=== PATIENT | male | born 1960 | race Caucasian/White ===

== ENCOUNTER 2022-03-15 08:17 | Emergency (ER) | payer OTHER, SELFPAY ==
[2022-03-15 08:30] VITALS: BP 116/78; PULSE 100; RESP 16; TEMP 37.6; O2SAT 95
--- NOTE | 2022-03-15 08:30 | ED.URI ---
HPI - URI/Sore Throat General Chief Complaint: Upper Respiratory Infection Stated Complaint: cough/sob Time Seen by Provider: 03/15/22 08:30 Source: patient Mode of arrival: ambulatory Limitations: no limitations History of Present Illness HPI Narrative: 61-year-old male presents with complaint of severe cough and chest congestion for 3 to 4 days. Reports body aches, chills, fatigue. No shortness of breath. Did a home COVID test that was negative. Reports that he got little sleep last night due to coughing. Taking [id number] Tylenol Cold and flu and not helping. Afebrile. Patient reports that he has not been this sick for several years, is concerned he has pneumonia. States that last night he was wheezing. All systems reviewed and negative except as noted above. Related Data Home Medications Medication Instructions Recorded Confirmed risankizumab-rzaa 75 mg/0.83 mL 150 mg subcut ONCE 03/15/22 03/15/22 subcutaneous syringe (Skyrizi) Allergies Allergy/AdvReac Type Severity Reaction Status Date / Time No Known Allergies Allergy Verified 03/15/22 08:29 Review of Systems Review of Systems: CONSTITUTIONAL: Denies fever. Reports chills and sweats. EYES: Denies visual changes, redness, or discharge. ENT: Denies rhinorrhea, congestion, sore throat, or otalgia. CARDIOVASCULAR: Denies chest pain, palpitations, or edema. RESPIRATORY: Reports cough and chest congestion Denies dyspnea. GASTROINTESTINAL: Denies abdominal pain, nausea, vomiting, or diarrhea. GENITOURINARY: Denies dysuria or hematuria. SKIN: Denies rash or itching. MUSCULOSKELETAL: Denies back pain, joint pain. Reports myalgia. NEUROLOGIC: Denies headache, numbness, or weakness. PSYCHIATRIC: Denies anxiety or depression. All other systems reviewed are negative, except as documented in HPI. PMFSH Comments At time of signature, agree with nursing past medical, surgical, social and family history. There is no relevant family history pertinent to the presenting complaint. Exam Narrative: GENERAL: This is a well-nourished, well-developed patient, in no apparent distress. HEAD: normocephalic, atraumatic. EYES: PERRL. Sclera clear/white. Vision is grossly intact. EARS: External ears normal, auditory canals clear and without drainage, TMs normal without perforation. Hearing grossly intact. NOSE: External nose normal with no obvious nasal discharge, nares without redness, no rhinorrhea. THROAT: Mucous membranes moist, posterior pharynx clear. NECK: Neck supple, non-tender without lymphadenopathy, masses or thyromegaly. CARDIOVASCULAR: Regular rate and rhythm without murmurs, gallops, or rubs. RESPIRATORY: Mildly decreased lung sounds to bilateral bases, otherwise clear to auscultation. Breath sounds equal bilaterally. No wheezes, rales, or rhonchi. SKIN: warm, Dry, intact with no suspicious lesions or rash, good texture and turgor. NEURO: awake, alert, and oriented to person, place and time. There were no obvious focal neurologic abnormalities. EXTREMITIES: Normal range of motion to all extremities. Course Course Level of Care: Express Care Visit Vital Signs Vital signs: Vital Signs Temperature 37.6 C 03/15/22 08:30 Pulse Rate 100 03/15/22 08:30 Respiratory Rate 16 03/15/22 08:30 Blood Pressure 116/78 03/15/22 08:30 Pulse Oximetry 95 03/15/22 08:30 Oxygen Delivery Room Air 03/15/22 08:30 Temperature 37.6 C 03/15/22 08:34 Pulse Rate 100 03/15/22 08:34 Respiratory Rate 16 03/15/22 08:34 Blood Pressure 116/78 03/15/22 08:34 Pulse Oximetry 95 03/15/22 08:34 Oxygen Delivery Room Air 03/15/22 08:34 Reviewed MDM - URI/Sore Throat MDM Narrative Medical decision making narrative: Patient is aware of diagnosis, understands and agrees to treatment plan. Anticipatory guidance given. Patient agrees to follow-up as directed and is aware of reasons to seek care at the emergency department. Portions of thi
[2022-03-15 08:34] VITALS: BP 116/78; PULSE 100; RESP 16; TEMP 37.6; O2SAT 95
== END 2022-03-15 08:49 | disposition home or self-care (01) ==
PROVIDERS: Emergency Provider Nurse Practitioner Family
DX: J06.9 Acute upper respiratory infection, unspecified (principal); L40.50 Arthropathic psoriasis, unspecified
CPT/HCPCS: 99213; G0463

== ENCOUNTER 2023-09-14 16:21 | Emergency (ER) | payer OTHER, SELFPAY ==
--- NOTE | 2023-09-14 16:29 | ED.URI ---
HPI - URI/Sore Throat General Chief Complaint: Upper Respiratory Infection Stated Complaint: sinus issue wheezing Time Seen by Provider: 09/14/23 16:25 Source: patient Mode of arrival: ambulatory Limitations: no limitations History of Present Illness HPI Narrative: Jerardo is a 63-year-old male patient presenting to clinic today with complaints of wheezing and sinus congestion x1 month. He reports no fever or chills. States he is wheezing more at nighttime. Cough is nonproductive. Reports shortness of breath times MD elicited complaint: sore throat and nasal congestion Related Data Allergies Allergy/AdvReac Type Severity Reaction Status Date / Time No Known Allergies Allergy Verified 09/14/23 16:23 Review of Systems Review of Systems: Pertinent positives per HPI. Patient denies any fever, chills, rash, headache, visual changes, dizziness, chest pain, palpitations, nausea, vomiting, diarrhea, constipation, abdominal pain, or any urinary issues. PMFSH Comments At the time of my signature, I reviewed and agree with the nursing past medical, surgical, social, and family history. There is no relevant family history pertinent to the patient complaint. Exam Narrative: General: Well-developed, well nourished, in no apparent distress Head: Normocephalic, atraumatic Eyes: Pupils equally round and reactive to light bilaterally, EOM intact, sclera and conjunctive clear, no discharge, lids normal Ears: TMs intact and clear, ear canals clear, no drainage, grossly hearing normal. Nose: Nares patent, yellow nasal discharge, moderate inflammation, frontal sinus tenderness. Mouth: Oral pharynx without lesions or masses, good dentition, MMM. PND Neck: Supple, trachea midline, no enlargement of anterior or posterior cervical nodes, no thyroid masses or goiter palpable. Cardio: Regular rate and rhythm, s1 and s2 normal, no murmur appreciated. Resp: Clear to auscultation bilaterally, no rhonchi, rales, wheezing or rubs Course Course Emergency Course: Portions of this record may have been created with voice recognition software. Level of Care: Express Care Visit Vital Signs Vital signs: Vital signs reviewed MDM - URI/Sore Throat MDM Narrative Medical decision making narrative: At the time of visit patient is resting comfortably on the exam table. I suspect the patient has sinobronchitis. Rx for Augmention, albuterol inhaler, and prednisone was sent to the pharmacy. Supportive measures were discussed with the patient he voiced understanding discharge instructions and agrees to treatment plan. Differential Diagnosis Differential diagnosis: Likely upper respiratory infection, otitis media, sinusitis, viral infection, bronchitis, influenza, pharyngitis and other (COVID) Discharge Plan Discharge Clinical Impression: Sinobronchitis Patient Disposition: Home, Self-Care Condition: Stable Instructions: Antibiotic Form, Sinusitis (ED), Acute Bronchitis (ED) Additional Instructions: Take prescription medications only as prescribed-Augmentin, albuterol inhaler, and prednisone Increase fluids and stay well hydrated Tylenol/motrin for pain/fever Flonase and OTC antihistamines as directed Vicks vapor rub to open sinuses Sinus rinses for congestion Cepacol spray, cough drops, throat lozenges, warm tea with honey/lemon, gargle salt water to soothe throat BRAT diet for diarrhea Clear liquids x 24 hours then advance as tolerated for nausea/vomiting Go to the ED if you develop a worsening in your condition- high fever not controlled by Tylenol or Motrin, dehydration, weakness, lethargy, shortness of breath, or chest pain. Follow up with your PCP in 3-5 days if symptoms persist. Prescriptions: New prednisone 20 mg tablet 40 mg PO DAILY 5 Days Qty: 10 0RF albuterol sulfate 90 mcg/actuation HFA aerosol inhaler 2 puff inhalation Q4-6H PRN (Reason: shortness of breath or wheezing) 30 Days Qty:
[2023-09-14 16:36] VITALS: BP 135/70; PULSE 80; RESP 16; TEMP 36.4; O2SAT 98
== END 2023-09-14 16:45 | disposition home or self-care (01) ==
PROVIDERS: Emergency Provider Nurse Practitioner Family
DX: J32.9 Chronic sinusitis, unspecified (principal); J40 Bronchitis, not specified as acute or chronic; L40.50 Arthropathic psoriasis, unspecified
CPT/HCPCS: 99213; G0463

== ENCOUNTER 2023-10-11 15:44 | Emergency (ER) | payer OTHER, SELFPAY ==
--- NOTE | 2023-10-11 15:53 | ED.GENADULT ---
HPI - General Adult General Chief complaint: Chest Pain Stated complaint: tired,pain in center of chest Time Seen by Provider: 10/11/23 16:00 Source: patient, RN notes reviewed and old records reviewed Mode of arrival: ambulatory Limitations: no limitations History of Present Illness HPI narrative: 63-year-old male presents to the [facility] with complaints of fatigue, stating it feels like a sunburn in the middle of my chest to the upper abdomen. ? is home positive for COVID Patient denies any fevers Reports occasional shortness of breath Denies nausea vomiting. Onset (ago): day(s) (2) Treatments prior to arrival: none Related Data Home Medications Medication Instructions Recorded Confirmed folic acid 1 mg tablet 1 mg PO DAILY 10/11/23 10/11/23 multivit with minerals-iron 18 1 tablet PO DAILY 10/11/23 10/11/23 mg-folic ac 400 mcg-vit K 25 mcg tablet (Adults Multivitamin) Allergies Allergy/AdvReac Type Severity Reaction Status Date / Time No Known Allergies Allergy Verified 10/11/23 16:02 Review of Systems Review of Systems: All systems reviewed & are unremarkable except as noted in HPI and below Constitutional: Constitutional: Reports no additional constitutional complaints Eyes: Eyes: Reports no additional eye complaints ENT: Reports system reviewed and no additional complaints, except as documented Cardiovascular: Cardiovascular: Reports as per HPI, Denies chest pain and Denies dyspnea Respiratory: Respiratory: Reports as per HPI, Denies chest congestion, Denies cough and Reports dyspnea Gastrointestinal: Gastrointestinal: Reports as per HPI, Reports abdominal pain (Epigastric), Denies nausea and Denies vomiting Musculoskeletal: Musculoskeletal: Reports no additional musculoskeletal complaints Integumentary/Breasts: Skin/Breast: Reports system reviewed and no additional complaints, except as docu Neurologic: Reports system reviewed and no additional complaints, except as documented Psychiatric: Psychiatric: Reports no additional psychiatric complaints Allergic/Immunologic: Allergic/Immunologic: Reports no additional allergic/immunologic complaints PMFSH Comments At the time of my signature, I reviewed and agree with the nursing past medical, surgical, social, and family history. There is no relevant family history pertinent to the patient complaint. Exam Const: General: cooperative, healthy appearing, comfortable, no acute distress, well developed, alert and well nourished Nutritional Appearance: well nourished Orientation/consciousness: patient oriented x3 Limitations: no limitations HENMT: Head: normal to inspection Ears: hearing grossly normal bilaterally and external ears normal Face/Nose/Sinus: Normal external nose present, Normal nares present, Normal nasal mucous membranes and turbinates present, normal facial exam and face symmetric Face and sinus: normal facial exam and face symmetric Mouth: Yes Normal oral and palatal mucosa present, Yes lip normal and Yes moist mucous membranes Throat: posterior oropharynx normal, uvula midline and no uvular edema Eyes: General: appearance normal, both eyes and all related structures Alignment and Position: alignment normal Periorbital: periorbital findings normal Pupils: Equal, round and reactive pupils present EOM: EOMs intact bilaterally Neck: Neck: normal visual inspection, full ROM, no lymphadenopathy and no meningeal signs Chest: Chest palpation & inspection: normal inspection of the chest Resp: Effort & Inspection: normal respiratory effort and able to speak in complete sentences Auscultation: clear to auscultation bilaterally, no crackles, no rales, no rhonchi and no wheezes Cardio: Rate: regular rate Rhythm: regular rhythm GI: GI Palp: No abdominal tenderness and Yes Soft to palpation Back/Spine/Pelvis: Cervical Spine: cervical ROM normal Skin: General skin exam: normal color and no rashes or lesions noted Lesions: no l
[2023-10-11 15:54] VITALS: BP 133/80; PULSE 95; RESP 16; TEMP 37.1; O2SAT 98
--- NOTE | 2023-10-11 16:04 | ECG_ITS ---
Measurements Intervals [place] Rate: 93 P: 42 [place]: 155 QRS: -56 QRSD: 106 T: 29 QT: 340 QTc: 423 Interpretive Statements SINUS RHYTHM PREVIOUS INFERIOR WALL IN ABNORMAL ECG NO PREVIOUS ECG AVAILABLE FOR COMPARISON Electronically Signed On 10-11-2023 18:10:23 [employer] COMP[employer] by Srinivasa Sánchez M.D.
== END 2023-10-11 16:43 | disposition home or self-care (01) ==
PROVIDERS: Emergency Provider Nurse Practitioner
DX: U07.1 COVID-19 (principal)
CPT/HCPCS: 87426; 87804; 93005; 99213; C9803; G0463